=== PATIENT | male | born 2000 | race Caucasian/White ===

== ENCOUNTER 2019-10-03 13:15 | Emergency (ER) | payer OTHER ==
[~2019-10-03] VITALS: Ht 177.8 cm; Wt 74.1 kg
[2019-10-03 14:29] LABS: STREP SCREEN NEGATIVE
[2019-10-03] MEDS ORDERED: ZITHROMAX Z PA250 MG PO (15:56)
[2019-10-03 16:09] VITALS: BP 110/66; PULSE 69; TEMP 98.8
== END 2019-10-03 16:15 | disposition home or self-care (01) ==
LOC: COL.ER 13:15
PROVIDERS: Emergency Medicine
DX: J16.0 Chlamydial pneumonia (principal); F17.210 Nicotine dependence, cigarettes, uncomplicated
CPT/HCPCS: J7030